=== PATIENT | female | born 1975 | race Caucasian/White ===

== ENCOUNTER 2022-08-23 06:15 | Observation (INO) | payer OTHER ==
[2022-08-21 09:51] LABS: BASOPHILS % (AUTO) 0.6 % (0.0-2.0); EOSINOPHILS # (AUTO) 0.9 K/uL (0.0-0.4); EOSINOPHILS % (AUTO) 12.3 % (0.0-4.0); HEMATOCRIT 42.1 % (36-48); HEMOGLOBIN 14.2 g/dL (12.0-16.0); LYMPHOCYTES # (AUTO) 2.3 K/uL (1.0-5.5); LYMPHOCYTES % (AUTO) 30.8 % (20.5-51.5); MEAN CORPUSCULAR HEMOGLOBIN 30 pg (27-31); MEAN CORPUSCULAR HGB CONC 34 % (32-36); MEAN CORPUSCULAR VOLUME 88 fL (79.0-98.0); MONOCYTES # (AUTO) 0.5 K/uL (0.0-1.0); MONOCYTES % (AUTO) 6.9 % (1.7-9.3); NEUTROPHILS # (AUTO) 3.6 K/uL (1.8-7.7); NEUTROPHILS % (AUTO) 49.4 % (40.0-70.0); PLATELET COUNT (AUTO) 292 K/uL (130-430); RED BLOOD CELL COUNT(AUTO) 4.76 MIL/uL (4.2-6.2); RED CELL DISTRIBUTION WIDTH 12.9 % (9.0-15.0); WHITE BLOOD COUNT (AUTO) 7.3 K/uL (4.8-10.8)
[2022-08-21 09:54] LABS: BILIRUBIN,URINE NEGATIVE (NEGATIVE); BLOOD, URINE NEGATIVE (NEGATIVE); CLARITY/URINE CLEAR (CLEAR); COLOR,URINE YELLOW (YELLOW); GLUCOSE,URINE NEGATIVE (NEGATIVE); KETONES,URINE NEGATIVE (NEGATIVE); LEUKOCYTE ESTERASE ,URINE NEGATIVE (NEGATIVE); NITRITE, URINE NEGATIVE (NEGATIVE); PROTEIN URINE NEGATIVE (NEGATIVE); UROBILINOGEN,URINE 0.2 (0.2-1.0)
[2022-08-21 10:01] LABS: HCG,QUAL RESULT NEGATIVE (NEGATIVE)
[2022-08-21 10:15] LABS: ALBUMIN 3.9 g/dL (3.4-4.8); CALCIUM 8.6 mg/dL (8.4-11.0); CREATININE 0.69 mg/dL (0.55-1.30); TOTAL BILIRUBIN 0.5 mg/dL (0.0-1.0)
[~2022-08-23] VITALS: Ht 154.9 cm; Wt 61.2 kg
[2022-08-23] MEDS ORDERED: LR 1,000 ML IV.SOLN IV ONE (07:43)
[2022-08-23] MEDS ORDERED: NALOXONE HCL 0.4 MG/ML AMP (NARCAN) ONE (07:43)
[2022-08-23] MEDS ORDERED: fentaNYL CITRATE/PF 100 MCG/2 ML AMP ONE (07:43)
[2022-08-23] MEDS ORDERED: ROPIVACAINE HCL/PF 0.2% EPIDURAL 200 ML PLAST..BAG ONE (07:43)
[2022-08-23] MEDS ORDERED: ceFAZolin SODIUM 2 GM VIAL ONE (07:43)
[2022-08-23] MEDS ORDERED: DEXAMETHASONE SOD PHOSPHATE 4 MG/ML VIAL ONE (07:43)
[2022-08-23] MEDS ORDERED: SUGAMMADEX SODIUM 200 MG/2 ML VIAL IV ONE (07:43)
[2022-08-23] MEDS ORDERED: SEVOFLURANE 15 MIN GAS INH ONE (07:43)
[2022-08-23] MEDS ORDERED: METOCLOPRAMIDE HCL 10 MG/2 ML VIAL ONE (07:43)
[2022-08-23] MEDS ORDERED: ROPIVACAINE HCL/PF 0.2% EPIDURAL 100 ML PLAST..BAG ONE (07:43)
[2022-08-23] MEDS ORDERED: KETOROLAC TROMETHAMINE 30 MG VIAL ONE (07:43)
[2022-08-23] MEDS ORDERED: HYDROmorphone 2 MG/ML VIAL ONE (07:43)
[2022-08-23] MEDS ORDERED: WATER FOR IRRIGATION,STERILE 1,000 ML IRRIG.SOLN IR ONE (07:43)
[2022-08-23] MEDS ORDERED: DEXTROSE 50% JECT 50 ML DISP.SYRIN ONE (07:43)
[2022-08-23] MEDS ORDERED: ONDANSETRON HCL 4 MG/2 ML VIAL ONE ×2 (07:43→13:02)
[2022-08-23] MEDS ORDERED: NS IRRIG SOLN 1000 ML IR ONE (07:43)
[2022-08-23] MEDS ORDERED: PROPOFOL 200MG/ 20ML VIAL (DIPRIVAN) IV ONE (07:43)
[2022-08-23] MEDS ORDERED: ROCURONIUM BROMIDE 10 MG/ML (ZEMURON) ONE (07:43)
[2022-08-23] MEDS ORDERED: MIDAZOLAM HCL 2 MG/2 ML VIAL (VERSED) ONE (07:43)
[2022-08-23] MEDS ORDERED: FUROSEMIDE 40 MG/4 ML VIAL ONE (07:43)
[2022-08-23] MEDS ORDERED: BUPIVACAINE /EPINEPHRINE/PF 0.25% 30 ML VIAL ONE (07:43)
[2022-08-23] MEDS ORDERED: ONDANSETRON HCL 4 MG/2 ML VIAL IVP PRN ×3 (10:15→18:00)
[2022-08-23] MEDS ORDERED: HYDROcodone/ACETAMIN 5-325 MG TAB (NORCO/ VICODIN) PO PRN (10:15)
[2022-08-23] MEDS ORDERED: HYDROmorphone 1 MG/ML INJ. CARTRIDGE ONE (11:23)
[2022-08-23] MEDS ORDERED: KETOROLAC TROMETHAMINE 30 MG VIAL IVP PRN (11:30)
[2022-08-23] MEDS ORDERED: HYDROmorphone 1 MG/ML INJ. CARTRIDGE IVP PRN ×2 (11:30→15:00)
[2022-08-23] MEDS ORDERED: MEPERIDINE 50 MG/ML VIAL IVP PRN (11:30)
[2022-08-23] MEDS ORDERED: LR 1,000 ML IV SCH (11:30)
[2022-08-23] MEDS ORDERED: ACETAMINOPHEN I.V. 1000 MG 100 ML IV ONE ×2 (11:36→11:45)
[2022-08-23] MEDS ORDERED: MEPERIDINE 100 MG INJ. 100 MG/ML VIAL ONE (13:02)
[2022-08-23] MEDS ORDERED: ceFAZolin SODIUM 2 GM in D5W 100 ML IV ONE (14:00)
[2022-08-23] MEDS ORDERED: HYDROmorphone 2 MG/ML VIAL IVP PRN (15:00)
[2022-08-23 15:23] VITALS: BP_SYST 110
[2022-08-23] MEDS ORDERED: NACL 0.9% 1,000 ML IV SCH (15:30)
[2022-08-23] MEDS: OXYCODONE/ACETAMINOPHEN 5-325 TABLET PO PRN (20:31)
[2022-08-24] MEDS: OXYCODONE/ACETAMINOPHEN 5-325 TABLET PO PRN ×4 (00:22→17:09)
[2022-08-24] MEDS ORDERED: DOCUSATE SODIUM 100 MG CAPSULE PO SCH (09:00)
[2022-08-24] MEDS ORDERED: CIPROFLOXACIN HCL 500 MG TABLET PO ONE (18:30)
== END 2022-08-24 18:55 | disposition home or self-care (01) ==
LOC: SDS 06:15 → SMU 06:18 → SDS 15:45 → SPU 15:45
PROVIDERS: ADMIT Specialist; ATTEND Specialist
DX: D25.9 Leiomyoma of uterus, unspecified (principal); N93.8 Other specified abnormal uterine and vaginal bleeding; K66.0 Peritoneal adhesions (postprocedural) (postinfection); K57.92 Diverticulitis of intestine, part unspecified, without perforation or abscess without bleeding; N94.12 Deep dyspareunia; Z79.899 Other long term (current) drug therapy; Z90.710 Acquired absence of both cervix and uterus
CPT/HCPCS: 80053; 84703; 85025; 87081; 87086; 36415; 93005; 71046; 81003; 58552; 57425; 88307; J3490 ×2; J1100; J1940; J1885; J2765; J3465; J2310; J2405; J2704; J2795; J3010; J1170 ×2; J2175; J7120; G0378 ×2; C1727; J0131; E0190; J7060

== ENCOUNTER 2023-04-04 07:41 | Day surgery (SDC) | payer OTHER ==
[2023-04-02 15:06] LABS: BILIRUBIN,URINE NEGATIVE (NEGATIVE); BLOOD, URINE NEGATIVE (NEGATIVE); CLARITY/URINE CLEAR (CLEAR); COLOR,URINE YELLOW (YELLOW); GLUCOSE,URINE NEGATIVE (NEGATIVE); KETONES,URINE NEGATIVE (NEGATIVE); LEUKOCYTE ESTERASE ,URINE NEGATIVE (NEGATIVE); NITRITE, URINE NEGATIVE (NEGATIVE); PROTEIN URINE NEGATIVE (NEGATIVE); UROBILINOGEN,URINE 0.2 (0.2-1.0)
[2023-04-02 15:13] LABS: BASOPHILS % (AUTO) 0.6 % (0.0-2.0); EOSINOPHILS # (AUTO) 0.2 K/uL (0.0-0.4); EOSINOPHILS % (AUTO) 3.3 % (0.0-4.0); HEMATOCRIT 41.1 % (36-48); HEMOGLOBIN 14.1 g/dL (12.0-16.0); LYMPHOCYTES # (AUTO) 1.8 K/uL (1.0-5.5); LYMPHOCYTES % (AUTO) 38.7 % (20.5-51.5); MEAN CORPUSCULAR HEMOGLOBIN 30 pg (27-31); MEAN CORPUSCULAR HGB CONC 34 % (32-36); MEAN CORPUSCULAR VOLUME 87 fL (79.0-98.0); MONOCYTES # (AUTO) 0.3 K/uL (0.0-1.0); MONOCYTES % (AUTO) 7.1 % (1.7-9.3); NEUTROPHILS # (AUTO) 2.4 K/uL (1.8-7.7); NEUTROPHILS % (AUTO) 50.3 % (40.0-70.0); PLATELET COUNT (AUTO) 356 K/uL (130-430); RED BLOOD CELL COUNT(AUTO) 4.73 MIL/uL (4.2-6.2); RED CELL DISTRIBUTION WIDTH 13.1 % (9.0-15.0); WHITE BLOOD COUNT (AUTO) 4.7 K/uL (4.8-10.8)
[2023-04-02 15:28] LABS: ALBUMIN 3.9 g/dL (3.4-4.8); CREATININE 0.66 mg/dL (0.55-1.30); POTASSIUM 4.4 mmol/L (3.5-5.1); TOTAL BILIRUBIN 0.5 mg/dL (0.0-1.0)
[~2023-04-04] VITALS: Ht 154.9 cm; Wt 63.5 kg
[~2023-04-04 07:41] MED LIST: CEFAZOLIN SOD 2 GM in D5W 50 ML IV ONE
[2023-04-04 10:56] VITALS: O2SAT 98
[2023-04-04] MEDS ORDERED: LR 1,000 ML IV.SOLN IV ONE (11:22)
[2023-04-04] MEDS ORDERED: LIDOCAINE 2%, 20 ML MDV ONE (11:22)
[2023-04-04] MEDS ORDERED: MIDAZOLAM HCL 2 MG/2 ML VIAL (VERSED) ONE (11:22)
[2023-04-04] MEDS ORDERED: SUGAMMADEX SODIUM 200 MG/2 ML VIAL IV ONE (11:22)
[2023-04-04] MEDS ORDERED: ONDANSETRON HCL 4 MG/2 ML VIAL ONE (11:22)
[2023-04-04] MEDS ORDERED: fentaNYL CITRATE/PF 100 MCG/2 ML AMP ONE (11:22)
[2023-04-04] MEDS ORDERED: KETOROLAC TROMETHAMINE 30 MG VIAL ONE (11:22)
[2023-04-04] MEDS ORDERED: DEXAMETHASONE SOD PHOSPHATE 4 MG/ML VIAL ONE (11:22)
[2023-04-04] MEDS ORDERED: PROPOFOL 200MG/ 20ML VIAL (DIPRIVAN) IV ONE (11:22)
[2023-04-04] MEDS ORDERED: DESFLURANE 15 MIN GAS INH ONE (11:22)
[2023-04-04] MEDS ORDERED: ROCURONIUM BROMIDE 10 MG/ML (ZEMURON) ONE (11:22)
[2023-04-04] MEDS ORDERED: ACETAMINOPHEN I.V. 1000 MG 100 ML IV ONE (11:59)
[2023-04-04] MEDS ORDERED: MEPERIDINE HCL/PF 25 MG/ML DISP.SYRIN IVP PRN (12:15)
[2023-04-04] MEDS ORDERED: MIDAZOLAM HCL 2 MG/2 ML VIAL (VERSED) IVP PRN (12:15)
[2023-04-04] MEDS ORDERED: METOCLOPRAMIDE HCL 10 MG/2 ML VIAL IVP PRN (12:15)
[2023-04-04] MEDS ORDERED: HYDROmorphone 1 MG/ML INJ. CARTRIDGE IVP PRN (12:15)
[2023-04-04] MEDS ORDERED: LR 1,000 ML IV SCH (12:15)
[2023-04-04] MEDS ORDERED: HYDROcodone/ACETAMIN 5-325 MG TAB (NORCO/ VICODIN) PO PRN (12:45)
[2023-04-04] MEDS ORDERED: OXYCODONE/ACETAMINOPHEN 5-325 TABLET PO PRN ×2 (12:45)
[2023-04-04] MEDS ORDERED: ONDANSETRON HCL 4 MG/2 ML VIAL IVP PRN (12:45)
[2023-04-04] MEDS ORDERED: HYDROmorphone 1 MG/ML INJ. CARTRIDGE ONE (14:40)
[2023-04-04] MEDS: HYDROmorphone 1 MG/ML INJ. CARTRIDGE IVP PRN ×2 (14:42→14:47)
[2023-04-04 15:28] VITALS: BP_SYST 114; PULSE 75; RESP 18; TEMP 97.8
== END 2023-04-04 18:45 | disposition home or self-care (01) ==
LOC: SDS 07:41 → SMU 07:42 → SDS 18:45
PROVIDERS: ATTEND Specialist
DX: N39.3 Stress incontinence (female) (male) (principal); N81.11 Cystocele, midline; N36.8 Other specified disorders of urethra; N95.1 Menopausal and female climacteric states; N39.41 Urge incontinence; K21.9 Gastro-esophageal reflux disease without esophagitis; Z79.899 Other long term (current) drug therapy
CPT/HCPCS: 81003; 80053; 81001; 84702; 85025; 87081; 36415; 93005; 71046; 57288; 57240; 88302; J3490; J0690; J1100; J1885; J2001; J3465; J2405; J2704; J3010; J1170; J7060; J7120; C1771; J0131

== ENCOUNTER 2023-05-10 10:43 | Outpatient (CLI) | payer OTHER | END 2023-05-10 17:00 | disposition home or self-care (01) | LOC: SUS 10:43 | PROVIDERS: ATTEND Specialist | DX: N32.89 Other specified disorders of bladder (principal); R10.2 Pelvic and perineal pain; R10.30 Lower abdominal pain, unspecified | CPT/HCPCS: 76830; 76857 ==